=== PATIENT | female | born 1965 | race African-American/Black ===

== ENCOUNTER 2016-11-25 21:21 | Emergency (ER) | payer OTHER ==
[~2016-11-25] VITALS: Ht 162.6 cm; Wt 81.0 kg
[2016-11-25] MEDS ORDERED: KETOROLAC 60MG/2ML VIAL IM ONE (21:45)
[2016-11-25] MEDS ORDERED: DIAZEPAM 5 MG TABLET PO ONE (21:45)
[2016-11-25 21:51] LABS: BASOPHILS % 1.5 % (0.0-2.0); EOSINOPHILS % 2.4 % (0.0-5.0); HEMATOCRIT. 36.6 % (36.0-48.0); HEMOGLOBIN. 12.2 g/dL (12.0-16.0); LYMPHOCYTES % 41.3 % (20.0-50.0); MEAN CORPUSCULAR HEMOGLOBIN 28.3 pg (28.0-32.0); MEAN CORPUSCULAR VOLUME 84.9 fL (81.0-99.0); MEAN PLATELET VOLUME 10.4 fl (7.4-10.4); MONOCYTES % 9.4 % (2.0-8.0); NEUTROPHILS % 45.4 % (40.0-76.0); PLATELET 221 x1000/uL (130-400); RED BLOOD CELL COUNT 4.31 mill/uL (4.2-5.4); RED CELL DISTRIBUTION WIDTH 13.4 % (11.6-14.6)
[2016-11-25 21:58] LABS: CARBON DIOXIDE 23 mEq/L (21-32); CHLORIDE 101 mEq/L (98-107)
[2016-11-25] MEDS ORDERED: HYDROCODONE/ACETAMINOPHEN 5/325MG TABLET PO ONE (22:15)
[2016-11-25 23:50] VITALS: BP 125/70
== END 2016-11-25 23:55 | disposition home or self-care (01) ==
LOC: ER 21:24
DX: M62.838 Other muscle spasm (principal); I10 Essential (primary) hypertension; E11.9 Type 2 diabetes mellitus without complications
CPT/HCPCS: 36415; 80048; 85025; 96372; 99284; J1885; Z7610

== ENCOUNTER 2017-07-30 22:52 | Inpatient (IN) | payer OTHER ==
[~2017-07-30] VITALS: Ht 162.6 cm; Wt 104.3 kg
[2017-07-30] MEDS ORDERED: SODIUM CHLORIDE 0.9% 1,000 ML IV ONE (23:16)
[2017-07-31] VITALS (7 sets, daily range): BP systolic 117–159; BP diastolic 51–71
[2017-07-31 00:13] LABS: BASOPHILS % 0.9 % (0.0-2.0); EOSINOPHILS % 2.5 % (0.0-5.0); HEMATOCRIT. 32.8 % (36.0-48.0); HEMOGLOBIN. 10.6 g/dL (12.0-16.0); LYMPHOCYTES % 33.9 % (20.0-50.0); MEAN CORPUSCULAR HEMOGLOBIN 28.2 pg (28.0-32.0); MEAN CORPUSCULAR VOLUME 87.4 fL (81.0-99.0); MEAN PLATELET VOLUME 9.1 fl (7.4-10.4); MONOCYTES % 7.3 % (2.0-8.0); NEUTROPHILS % 55.4 % (40.0-76.0); PLATELET 234 x1000/uL (130-400); RED BLOOD CELL COUNT 3.75 mill/uL (4.2-5.4); RED CELL DISTRIBUTION WIDTH 13.9 % (11.6-14.6)
[2017-07-31 00:23] LABS: HCG SCREEN NEGATIVE
[2017-07-31 00:24] LABS: AMMONIA 31 uMol/L (<32)
[2017-07-31 00:33] LABS: CARBON DIOXIDE 27 mEq/L (21-32); CHLORIDE 108 mEq/L (98-107); CREATINE KINASE 254 IU/L (26-192); ETHANOL BLOOD < 10 mg/dL; TROPONIN I < 0.02 ng/mL (0.00-0.04)
[2017-07-31] MEDS ORDERED: LABETALOL 5MG/ML SYR 20 MG/4 ML SYRINGE IV NR (01:15)
[2017-07-31] MEDS ORDERED: POTASSIUM BICARB/CIT ACID 25 MEQ TABLET.EFF PO NR (01:15)
[2017-07-31] MEDS ORDERED: MECLIZINE 25MG TABLET PO NR (01:15)
[2017-07-31] MEDS ORDERED: ATOR10TA PO (03:10)
[2017-07-31] MEDS ORDERED: ASPI-1159 PO (03:11)
[2017-07-31] MEDS ORDERED: GLIP10TA10 PO (03:12)
[2017-07-31] MEDS ORDERED: LISI10TA5 PO (03:13)
[2017-07-31] MEDS ORDERED: DOCUSATE SODIUM 100MG CAPSULE PO PRN (06:15)
[2017-07-31] MEDS ORDERED: DIPHENHYDRAMINE 50MG/ML VIAL IV PRN (06:15)
[2017-07-31] MEDS ORDERED: NA PHOS,M-B/NA PHOS,DI-BA ENEMA 118ML PR PRN (06:15)
[2017-07-31] MEDS ORDERED: ONDANSETRON HCL 4MG/2ML VIAL IV PRN (06:15)
[2017-07-31] MEDS ORDERED: ACETAMINOPHEN 650MG/20.3ML UDC GT PRN (06:15)
[2017-07-31] MEDS ORDERED: ACETAMINOPHEN 325MG TABLET PO PRN (06:15)
[2017-07-31] MEDS ORDERED: HYDROCODONE/ACETAMINOPHEN 5/325MG TABLET PO PRN (06:15)
[2017-07-31] MEDS ORDERED: ACETAMINOPHEN 650MG SUPP PR PRN (06:15)
[2017-07-31] MEDS ORDERED: MAGNESIUM/ALUMINUM HYDROXIDE/SIMETHICONE 30ML UDC PO PRN (06:15)
[2017-07-31] MEDS ORDERED: GUAIFENESIN 200MG/10ML SUGAR FREE UDC PO PRN (06:15)
[2017-07-31] MEDS ORDERED: ENOXAPARIN 40MG/0.4ML SYR SUBCUT SCH (06:15)
[2017-07-31] MEDS ORDERED: MORPHINE SULFATE 2 MG/ML CPJ (NOT FOR IM USE) IV PRN (06:15)
[2017-07-31] MEDS: ENOXAPARIN 30MG/0.3ML SYR SUBCUT SCH ×2 (09:29→21:13)
[2017-07-31] MEDS: METOPROLOL TARTRATE 25MG TABLET PO SCH ×2 (09:29→21:12)
[2017-07-31] MEDS ORDERED: INFLUENZA VIRUS VACCINE 0.5ML SYR IM ONE (10:00)
[2017-07-31 10:12] LABS: T4 FREE 0.93 ng/dL (0.76-1.46)
[2017-07-31] MEDS ORDERED: PNEUMOCOCCAL 23-VAL P-SAC VAC 0.5 ML IM ONE (11:00)
[2017-07-31 16:40] LABS: CLARITY URINE CLEAR (CLEAR); COLOR URINE YELLOW (YELLOW); KETONES URINE NEGATIVE (NEGATIVE); LEUKOCYTE ESTERASE URINE NEGATIVE (NEGATIVE); NITRITE URINE NEGATIVE (NEGATIVE); OCCULT BLOOD URINE NEGATIVE (NEGATIVE); PH URINE 5.5 (4.5-8.0); PROTEIN URINE 3+ (NEGATIVE); SPECIFIC GRAVITY URINE 1.014 (1.005-1.030); UROBILINOGEN URINE 0.2 E.U./dL (0.2-1.0)
[2017-07-31 17:01] LABS: *AMPHETAMINES SCREEN URINE NEGATIVE (NEGATIVE); *BARBITURATES SCREEN URINE NEGATIVE (NEGATIVE); *BENZODIAZEPINES SCREEN URINE NEGATIVE (NEGATIVE); *COCAINE SCREEN URINE NEGATIVE (NEGATIVE); CANNABINOID URINE SCREEN NEGATIVE (NEGATIVE); METHADONE URINE SCREEN NEGATIVE (NEGATIVE); OPIATES URINE SCREEN PRESUMTIVE POSITIVE (NEGATIVE); PHENCYCLIDINE URINE SCREEN NEGATIVE (NEGATIVE)
[2017-07-31 17:13] LABS: CREATINE KINASE 226 IU/L (26-192); CREATINE KINASE MB FRACTION 0.9 ng/mL (0.5-3.6); TROPONIN I < 0.02 ng/mL (0.00-0.04)
[2017-07-31] MEDS: SODIUM CHLORIDE 0.9% INJ 3ML FLUSH IVF SCH ×2 (17:57→21:12)
[2017-07-31 23:50] LABS: CREATINE KINASE 235 IU/L (26-192); CREATINE KINASE MB FRACTION 1.1 ng/mL (0.5-3.6); TROPONIN I < 0.02 ng/mL (0.00-0.04)
[2017-08-01] VITALS: BP 122/63
[2017-08-01 04:00] VITALS: BP 133/66
[2017-08-01] MEDS: SODIUM CHLORIDE 0.9% INJ 3ML FLUSH IVF SCH (05:58)
[2017-08-01 06:21] LABS: BASOPHILS % 0.7 % (0.0-2.0); CARBON DIOXIDE 27 mEq/L (21-32); CHLORIDE 104 mEq/L (98-107); EOSINOPHILS % 2.1 % (0.0-5.0); HEMATOCRIT. 32.1 % (36.0-48.0); HEMOGLOBIN. 10.7 g/dL (12.0-16.0); LYMPHOCYTES % 31.1 % (20.0-50.0); MEAN CORPUSCULAR HEMOGLOBIN 29.2 pg (28.0-32.0); MEAN CORPUSCULAR VOLUME 87.8 fL (81.0-99.0); MONOCYTES % 9.1 % (2.0-8.0); PLATELET 228 x1000/uL (130-400); RED BLOOD CELL COUNT 3.65 mill/uL (4.2-5.4); RED CELL DISTRIBUTION WIDTH 14.1 % (11.6-14.6)
[2017-08-01 06:28] LABS: CREATINE KINASE MB FRACTION 1.1 ng/mL (0.5-3.6); HDL CHOLESTEROL 54 mg/dL (40-59); LDL CHOLESTEROL 82 mg/dL (5-100)
[2017-08-01 08:00] VITALS: BP 129/66
[2017-08-01] MEDS: METOPROLOL TARTRATE 25MG TABLET PO SCH (09:04)
[2017-08-01] MEDS: ENOXAPARIN 30MG/0.3ML SYR SUBCUT SCH (09:04)
[2017-08-01 12:00] VITALS: BP 141/59
[2017-08-01 13:40] VITALS: BP 141/59
== END 2017-08-01 15:58 | disposition short-term general hospital (02) | DRG 639 ==
LOC: ER 22:56 → EDBEDREQTM 23:26 → EDBEDREQ 23:26 → 5WST 07-31 01:25 → EDBEDREQTM 07-31 01:27 → EDBEDREQ 07-31 01:27 → EDBEDREQDT 07-31 01:27 → ENRESERV 07-31 02:01
PROVIDERS: ADMIT Family Medicine; ATTEND Family Medicine
DX: E11.649 Type 2 diabetes mellitus with hypoglycemia without coma (principal); E66.9 Obesity, unspecified; E78.5 Hyperlipidemia, unspecified; E87.6 Hypokalemia; I10 Essential (primary) hypertension; J45.909 Unspecified asthma, uncomplicated; Z79.82 Long term (current) use of aspirin; Z79.899 Other long term (current) drug therapy; Z68.39 Body mass index [BMI] 39.0-39.9, adult
CPT/HCPCS: 36415; 70450; 71045; 74176; 76700; 80053; 80061; 80305; 81001; 82140; 82550; 82553; 82962; 83036; 83605; 83690; 83880; 84439; 84443; 84484; 84703; 85025; 85379; 85610; 87804; 90686; 90732; 93005; 93306; 96361; 96374; 99291; G0482; J1650; J3490; J7030; J8597

== ENCOUNTER 2020-05-24 17:14 | Emergency (ER) | payer OTHER ==
[~2020-05-24] VITALS: Ht 162.6 cm; Wt 86.0 kg
[~2020-05-24 17:14] MED LIST: ASPI-1497 PO; ATOR10TA PO; GLIP10TA10 PO; LISI10TA5 PO
[2020-05-24] MEDS ORDERED: LORAZEPAM 2MG/ML CPJ IV ONE (19:45)
[2020-05-24] MEDS ORDERED: ACETAMINOPHEN 325MG TABLET PO ONE (19:45)
[2020-05-24 22:55] VITALS: BP 141/56
== END 2020-05-24 22:55 | disposition home or self-care (01) ==
LOC: ER 17:14
DX: S39.012A Strain of muscle, fascia and tendon of lower back, initial encounter (principal); I10 Essential (primary) hypertension; J45.909 Unspecified asthma, uncomplicated; E11.9 Type 2 diabetes mellitus without complications; Z79.899 Other long term (current) drug therapy; W01.0XXA Fall on same level from slipping, tripping and stumbling without subsequent striking against object, initial encounter; Y93.89 Activity, other specified; Y92.89 Other specified places as the place of occurrence of the external cause; Y99.8 Other external cause status
CPT/HCPCS: 72131; 72170; 96374; 99285; J2060

== ENCOUNTER 2023-03-09 17:13 | Emergency (ER) | payer OTHER ==
[~2023-03-09] VITALS: Ht 162.6 cm; Wt 80.0 kg
[~2023-03-09 17:13] MED LIST changes: +LISI10TA26 PO; -LISI10TA5 PO
[2023-03-09 17:17] VITALS: O2SAT 99
[2023-03-09 18:30] VITALS: BP 135/79; PULSE 84; RESP 20; TEMP 97.9
[2023-03-09] MEDS ORDERED: ACETAMINOPHEN 325MG TABLET PO ONE (18:30)
[2023-03-09] MEDS ORDERED: CYCLOBENZAPRINE 10MG TABLET PO ONE (18:30)
[2023-03-09] MEDS ORDERED: KETOROLAC 60MG/2ML VIAL IM ONE (18:30)
[2023-03-09 19:09] LABS: BASOPHILS % 0.8 % (0.0-2.0); EOSINOPHILS % 1.5 % (0.0-5.0); HEMATOCRIT. 33.4 % (36.0-48.0); LYMPHOCYTES % 15.4 % (20.0-50.0); MEAN CORPUSCULAR HEMOGLOBIN 28.6 pg (28.0-32.0); MEAN CORPUSCULAR HGB CONC 32.9 g/dL (31.0-37.0); MEAN PLATELET VOLUME 9.7 fl (7.4-10.4); MONOCYTES % 7.4 % (2.0-8.0); NEUTROPHILS % 74.9 % (40.0-76.0); PLATELET 246 x1000/uL (130-400); RED BLOOD CELL COUNT 3.84 mill/uL (4.2-5.4); RED CELL DISTRIBUTION WIDTH 14.7 % (11.6-14.6); WHITE BLOOD COUNT 5.6 x1000/uL (4.5-11.0)
[2023-03-09 19:15] LABS: CHLORIDE 107 mEq/L (98-107); INDEX HEMOLYSI 1 (1-3); INDEX ICTERIC 1 (1-4); INDEX LIPEMIC 1 (1-3); POTASSIUM 4.4 mEq/L (3.5-5.1); SODIUM 137 mEq/L (136-145)
[2023-03-09 19:23] LABS: ALANINE AMINOTRANSFERASE 18 IU/L (13-61); ALBUMIN 2.8 g/dL (3.4-5.0); ASPARTATE AMINOTRANSFERASE 19 IU/L (15-37); BILIRUBIN TOTAL 0.2 mg/dL (0.1-1.0); CALCIUM 8.9 mg/dL (8.5-10.1); CARBON DIOXIDE 26 mEq/L (21-32); CREATINE KINASE 833 IU/L (26-192); CREATININE 2.5 mg/dL (0.6-1.3); GLUCOSE 228 mg/dL (70-105); PROTEIN TOTAL 6.7 g/dL (6.0-8.3); UREA NITROGEN BLOOD 36 mg/dL (7-21)
[2023-03-09] MEDS ORDERED: SODIUM CHLORIDE 0.9% 1,000 ML IV ONE (20:00)
[2023-03-09 23:30] LABS: INDEX HEMOLYSI 1 (1-3)
[2023-03-09 23:38] LABS: CREATINE KINASE 826 IU/L (26-192)
== END 2023-03-10 01:15 | disposition home or self-care (01) ==
LOC: ER 17:13
DX: M62.838 Other muscle spasm (principal); M62.82 Rhabdomyolysis; N17.9 Acute kidney failure, unspecified; J45.909 Unspecified asthma, uncomplicated; E11.9 Type 2 diabetes mellitus without complications; I10 Essential (primary) hypertension
CPT/HCPCS: 99283; 96360; 80053; 82550; 85025; 36415; 96372; J1885

== ENCOUNTER 2025-05-04 13:11 | Emergency (ER) | payer OTHER ==
[~2025-05-04] VITALS: Ht 162.6 cm; Wt 82.0 kg
[~2025-05-04 13:11] MED LIST changes: -GLIP10TA10 PO; +GLIP10TA17 PO
[2025-05-04 13:15] VITALS: O2SAT 99
[2025-05-04] MEDS: HYDROCODONE/ACETAMINOPHEN 5/325MG TABLET PO ONE (15:35)
[2025-05-04] MEDS: GABAPENTIN 300MG CAPSULE PO ONE (15:35)
[2025-05-04] MEDS: METHOCARBAMOL 500MG TABLET PO STA (15:36)
[2025-05-04 15:58] LABS: CLARITY URINE CLEAR (CLEAR); GLUCOSE URINE 1+ (NEGATIVE); KETONES URINE NEGATIVE (NEGATIVE); LEUKOCYTE ESTERASE URINE NEGATIVE (NEGATIVE); NITRITE URINE NEGATIVE (NEGATIVE); OCCULT BLOOD URINE 1+ (NEGATIVE); PH URINE 8.5 (4.5-8.0); PROTEIN URINE 4+ (NEGATIVE); SPECIFIC GRAVITY URINE 1.014 (1.005-1.030); UROBILINOGEN URINE 0.2 E.U./dL (0.2-1.0)
[2025-05-04 16:21] LABS: COLOR URINE STRAW (YELLOW)
[2025-05-04 16:22] LABS: BACTERIA URINE NONE SEEN; MUCUS URINE 1+ /lpf (< = 2+); RBC URINE NONE SEEN /hpf (0-2); SQUAMOUS EPITHELIAL CELL URINE 1+ /lpf (RARE/1+); TRICHOMONAS URINE RARE; WBC URINE 0-2 /hpf (0-2)
[2025-05-04 16:37] LABS: BASOPHILS % 1.6 % (0.0-2.0); EOSINOPHILS % 3.0 % (0.0-5.0); HEMATOCRIT. 39.3 % (36.0-48.0); HEMOGLOBIN. 12.9 g/dL (12.0-16.0); LYMPHOCYTES % 15.1 % (20.0-50.0); MEAN PLATELET VOLUME 9.7 fl (7.4-10.4); MONOCYTES % 7.1 % (2.0-8.0); NEUTROPHILS % 73.2 % (40.0-76.0); PLATELET 216 x1000/uL (130-400); RED BLOOD CELL COUNT 4.25 mill/uL (4.2-5.4); RED CELL DISTRIBUTION WIDTH 18.8 % (11.6-14.6)
[2025-05-04 16:41] LABS: TROPONIN I HIGH SENSITIVITY 33 ng/L (3.0-34); UREA NITROGEN BLOOD 33 mg/dL (9-23)
[2025-05-04 16:42] LABS: ASPARTATE AMINOTRANSFERASE 28 IU/L (<34); BILIRUBIN DIRECT < 0.1 mg/dL (<=3.0)
[2025-05-04 16:43] LABS: BILIRUBIN TOTAL 0.4 mg/dL (0.1-1.0); PROTEIN TOTAL 7.4 g/dL (6.0-8.3)
[2025-05-04 16:49] LABS: CREATININE 5.7 mg/dL (0.6-1.0)
[2025-05-04] MEDS ORDERED: METH-653 MT (17:16)
[2025-05-04] MEDS ORDERED: GABA-1180 MT (17:16)
[2025-05-04] MEDS ORDERED: TOPUD PO (19:10)
[2025-05-04] MEDS ORDERED: HYDR-4001 MT (19:10)
[2025-05-04 19:24] VITALS: BP 173/73; PULSE 71; RESP 16; TEMP 37; O2SAT 100
== END 2025-05-04 19:27 | disposition home or self-care (01) ==
LOC: ER 13:11 → CMPBEDREQ 05-05 09:01
DX: M62.838 Other muscle spasm (principal); M79.605 Pain in left leg; M79.604 Pain in right leg; E11.22 Type 2 diabetes mellitus with diabetic chronic kidney disease; E78.5 Hyperlipidemia, unspecified; I12.0 Hypertensive chronic kidney disease with stage 5 chronic kidney disease or end stage renal disease; J45.909 Unspecified asthma, uncomplicated; N18.6 End stage renal disease; Z79.82 Long term (current) use of aspirin; Z79.899 Other long term (current) drug therapy; Z99.2 Dependence on renal dialysis
CPT/HCPCS: 80076; 80048; 81003; 82550; 83690; 83735; 85025; 84484; 36415; 93005; 99284; Z7610